=== PATIENT | female | born 1975 | race American Indian/Alaskan Native ===

== ENCOUNTER 2019-03-29 07:32 | Emergency (ER) | payer SELFPAY ==
[2019-03-29] MEDS ORDERED: NACL 0.9% 500 ML 500 ML IV ONE (07:42)
[2019-03-29 08:06] LABS: Basophils # (Auto) 0.1 K/mm3 (0.0-0.1); Basophils % (Auto) 0.6 % (0.0-1.8); Eosinophils % (Auto) 0.2 % (0.0-4.3); Hemoglobin 12.2 gm/dl (10.1-14.3); Lymphocytes % (Auto) 6.4 % (13.4-35.0); Mean Corpuscular HGB Conc 34 % (30-34); Mean Corpuscular Volume 96 fl (79-97); Monocytes # (Auto) 1.3 K/mm3 (0.0-0.8); Monocytes % (Auto) 8.6 % (0.0-7.3); Platelet Count 244 K/mm3 (140-440); Red Blood Count 3.76 M/mm3 (3.65-5.03); Red Cell Distribution Width 15.2 % (13.2-15.2)
[2019-03-29] MEDS ORDERED: TYLENOL PO ONE (08:06)
[2019-03-29] MEDS ORDERED: TYLENOL ONE (08:09)
--- NOTE | 2019-03-29 08:12 | XRay Report ---
CHEST 1 VIEW 0752 INDICATION / CLINICAL INFORMATION: possible Sepsis. COMPARISON: None available. FINDINGS: SUPPORT DEVICES: None HEART / MEDIASTINUM: No significant abnormality. LUNGS / PLEURA: No significant pulmonary or pleural abnormality. No pneumothorax. ADDITIONAL FINDINGS: No significant additional findings. IMPRESSION: No significant acute abnormality Signer Name: Raad Johnson MD Signed: 03/29/2019 8:07 AM Workstation Name: [id number]
[2019-03-29 08:23] LABS: INR 1.18 (0.87-1.13)
[2019-03-29] MEDS ORDERED: TORADOL IV ONE (08:25)
[2019-03-29] MEDS ORDERED: ZOFRAN IV ONE ×2 (08:25→15:18)
[2019-03-29] MEDS ORDERED: MORPHINE IV ONE ×2 (08:25→15:18)
[2019-03-29] MEDS ORDERED: NACL 0.9% 1000 ML 1,000 ML IV ONE ×2 (08:25→10:58)
[2019-03-29 08:29] LABS: Alanine Aminotransferase 19 units/L (7-56); Albumin 3.8 g/dL (3.9-5); BUN/Creatinine Ratio 8; Blood Urea Nitrogen 4 mg/dL (7-17); Calcium 9.5 mg/dL (8.4-10.2); Hemolysis Index 11
[2019-03-29 08:41] LABS: Bacteria,Urine 1+ /HPF (Negative); Bilirubin,Urine NEG (Negative); Blood,Urine MOD (Negative); Color,Urine Yellow (Yellow); Mucus,Urine 2+ /HPF
[2019-03-29] MEDS ORDERED: LEVAQUIN 750MG/150ML 750 MG/150 ML BAG IV ONE (08:50)
[2019-03-29] MEDS ORDERED: K-DUR PO ONE (08:50)
[2019-03-29 08:54] LABS: HCG Qualitative,Urine Negative (Negative)
--- NOTE | 2019-03-29 09:43 | Emergency Department Report ---
ED Fever HPI - General Chief Complaint: Weakness Stated Complaint: BODY ACHE/CHILLS Time Seen by Provider: 03/29/19 08:15 Source: patient Exam Limitations: no limitations - History of Present Illness Initial Comments: 43-year-old female the past medical history of asthma an endometriosis presents to the hospital complains of fever 2 days. Patient had fever, chills, and sweats. She complains of a dry cough and some pain to his chest, abdomen, wrist, and back with coughing and movement that is moderate to severe in intensity. Patient also having intermittent nausea, vomiting, and diarrhea. She traveled here from [facility] 1.5 week ago. She denies dysuria or known sick contacts. Today she had significant bilateral lower back pain with generalized weakness making it difficult for her to ambulate. ED Review of Systems ROS: Stated complaint: BODY ACHE/CHILLS Other details as noted in HPI Comment: All other systems reviewed and negative ED Past Medical Hx - Past Medical History Previous Medical History?: Yes Hx Asthma: Yes Additional medical history: Endometriosis - Surgical History Past Surgical History?: Yes Additional Surgical History: back surgery. Laparoscopic surgery due to endometriosis - Social History Smoking Status: Current Every Day Smoker Substance Use Type: Alcohol - Medications Home Medications: Home Medications Medication Instructions Recorded Confirmed Last Taken Type Albuterol Sulfate [Proair 90 mcg IH Q4HR PRN #1 aer.pow.ba 03/29/19 Unknown Rx Respiclick] Ibuprofen [Motrin] 800 mg PO Q8HR PRN #30 tablet 03/29/19 Unknown Rx Promethazine [Phenergan] 25 mg PO Q8HR PRN #20 tab 03/29/19 Unknown Rx levoFLOXacin [Levaquin] 750 mg PO QDAY #7 tablet 03/29/19 Unknown Rx traMADol [Ultram 50 MG tab] 50 mg PO Q6HR PRN #20 tablet 03/29/19 Unknown Rx ED Physical Exam - General Limitations: No Limitations - Other Other exam information: General: No limitations, patient is alert in no acute distress Head exam: Atraumatic, normocephalic Eyes exam: Normal appearance, pupils equal reactive to light, extraocular movements intact ENT: Moist mucous membrane, normal oropharynx without exudates Neck exam: Normal inspection, full range of motion, no meningismus nontender Respiratory exam: Clear to auscultation bilateral, no wheezes, rales, crackles Cardiovascular: Normal rate and rhythm, normal heart sounds Abdomen: Soft, nondistended, generalized abdominal tenderness greatest in the lower abdomen, with normal bowel sounds, no rebound, or guarding Extremity: Full range of motion normal inspection no deformity Back: Normal Inspection, full range of motion, no midline tenderness, bilateral paraspinal muscle/flank tenderness Neurologic: Alert, oriented x3, cranial nerves intact, no motor or sensory deficit Psychiatric: normal affect, normal mood Skin: Warm, dry, intact ED Course Vital Signs 03/29/19 03/29/19 03/29/19 07:35 08:04 08:16 Temperature 103.2 F H Pulse Rate 114 H 113 H 110 H Respiratory 16 28 H 27 H Rate Blood Pressure 171/78 177/97 O2 Sat by Pulse 100 100 Oximetry 03/29/19 03/29/19 03/29/19 08:30 08:46 09:00 Temperature Pulse Rate 111 H 105 H 100 H Respiratory 23 19 26 H Rate Blood Pressure 177/97 155/91 155/91 O2 Sat by Pulse 100 100 99 Oximetry 03/29/19 03/29/19 03/29/19 09:16 09:30 09:46 Temperature Pulse Rate 97 H 96 H Respiratory 20 26 H Rate Blood Pressure 150/87 150/87 145/78 O2 Sat by Pulse 99 100 100 Oximetry 03/29/19 03/29/19 03/29/19 09:50 10:05 10:30 Temperature Pulse Rate 100 H 96 H Respiratory 20 21 Rate Blood Pressure 145/78 122/71 O2 Sat by Pulse 100 100 Oximetry 03/29/19 03/29/19 03/29/19 10:59 11:00 11:30 Temperature 98.1 F Pulse Rate 94 H 87 Respiratory 20 16 Rate Blood Pressure 134/87 134/87 O2 Sat by Pulse 100 100 Oximetry 03/29/19 03/29/19 12:00 12:30 Temperature Pulse Rate 83 84 Respiratory 21 19 Rate Blood Pressure 127/61 134/87 O2 Sat by Pulse 100 100 Oximetry - Consultations Consultation #1: 03/29/19 15:15 Case D/w Dr Kostas Juarez. F/u in office 03/31 advised ED Medical Decision Making - Lab Data Result diagrams: 03/29/19 07:44 03/29/19 07:44 Lab Results 03/29/19 03/29/19 03/29/19 Range/Units 07:44 07:44 07:44 WBC 15.0 H (4.5-11.0) K/mm3 RBC 3.76 (3.65-5.03) M/mm3 Hgb 12.2 (10.1-14.3) gm/dl Hct 36.0 (30.3-42.9) % MCV 96 (79-97) fl MCH 33 H (28-32) pg MCHC 34 (30-34) % RDW 15.2 (13.2-15.2) % Plt Count 244 (140-440) K/mm3 Lymph % (Auto) 6.4 L (13.4-35.0) % Howell % (Auto) 8.6 H (0.0-7.3) % Eos % (Auto) 0.2 (0.0-4.3) % Baso % (Auto) 0.6 (0.0-1.8) % Lymph # 1.0 L (1.2-5.4) K/mm3 Howell # 1.3 H (0.0-0.8) K/mm3 Eos # 0.0 (0.0-0.4) K/mm3 Baso # 0.1 (0.0-0.1) K/mm3 Seg Neutrophils % 84.2 H (40.0-70.0) % Seg Neutrophils # 12.6 H (1.8-7.7) K/mm3 PT 14.7 (12.2-14.9) Sec. INR 1.18 H (0.87-1.13) VBG pH (7.320-7.420) Sodium 137 (137-145) mmol/L Potassium 3.5 L (3.6-5.0) mmol/L Chloride 97.6 L (98-107) mmol/L Carbon Dioxide 25 (22-30) mmol/L Anion Gap 18 mmol/L BUN 4 L (7-17) mg/dL Creatinine 0.5 L (0.7-1.2) mg/dL Estimated GFR > 60 ml/min BUN/Creatinine Ratio 8 % Glucose 127 H (65-100) mg/dL Lactic Acid (0.7-2.0) mmol/L Calcium 9.5 (8.4-10.2) mg/dL Total Bilirubin 0.50 (0.1-1.2) mg/dL AST 20 (5-40) units/L ALT 19 (7-56) units/L Alkaline Phosphatase 96 (35-129) units/L Total Protein 7.4 (6.3-8.2) g/dL Albumin 3.8 L (3.9-5) g/dL Albumin/Globulin Ratio 1.1 % Urine Color (Yellow) Urine Turbidity (Clear) Urine pH (5.0-7.0) Ur Specific [place] (1.003-1.030) Urine Protein (Negative) mg/dL Urine Glucose (UA) (Negative) mg/dL Urine Ketones (Negative) mg/dL Urine Blood (Negative) Urine Nitrite (Negative) Urine Bilirubin (Negative) Urine Urobilinogen (<2.0) mg/dL Ur Leukocyte Esterase (Negative) Urine WBC (Auto) (0.0-6.0) /HPF Urine RBC (Auto) (0.0-6.0) /HPF U Epithel Cells (Auto) (0-13.0) /HPF Urine Bacteria (Auto) (Negative) /HPF Urine Mucus /HPF Urine HCG, Qual (Negative) 03/29/19 03/29/19 03/29/19 Range/Units 07:44 08:05 08:20 WBC (4.5-11.0) K/mm3 RBC (3.65-5.03) M/mm3 Hgb (10.1-14.3) gm/dl Hct (30.3-42.9) % MCV (79-97) fl MCH (28-32) pg MCHC (30-34) % RDW (13.2-15.2) % Plt Count (140-440) K/mm3 Lymph % (Auto) (13.4-35.0) % Howell % (Auto) (0.0-7.3) % Eos % (Auto) (0.0-4.3) % Baso % (Auto) (0.0-1.8) % Lymph # (1.2-5.4) K/mm3 Howell # (0.0-0.8) K/mm3 Eos # (0.0-0.4) K/mm3 Baso # (0.0-0.1) K/mm3 Seg Neutrophils % (40.0-70.0) % Seg Neutrophils # (1.8-7.7) K/mm3 PT (12.2-14.9) Sec. INR (0.87-1.13) VBG pH 7.407 (7.320-7.420) Sodium (137-145) mmol/L Potassium (3.6-5.0) mmol/L Chloride (98-107) mmol/L Carbon Dioxide (22-30) mmol/L Anion Gap mmol/L BUN (7-17) mg/dL Creatinine (0.7-1.2) mg/dL Estimated GFR ml/min BUN/Creatinine Ratio % Glucose (65-100) mg/dL Lactic Acid 1.20 (0.7-2.0) mmol/L Calcium (8.4-10.2) mg/dL Total Bilirubin (0.1-1.2) mg/dL AST (5-40) units/L ALT (7-56) units/L Alkaline Phosphatase (35-129) units/L Total Protein (6.3-8.2) g/dL Albumin (3.9-5) g/dL Albumin/Globulin Ratio % Urine Color Yellow (Yellow) Urine Turbidity Slightly-cloudy (Clear) Urine pH 6.0 (5.0-7.0) Ur Specific [place] 1.017 (1.003-1.030) Urine Protein 100 mg/dl (Negative) mg/dL Urine Glucose (UA) Neg (Negative) mg/dL Urine Ketones Tr (Negative) mg/dL Urine Blood Mod (Negative) Urine Nitrite Neg (Negative) Urine Bilirubin Neg (Negative) Urine Urobilinogen 4.0 (<2.0) mg/dL Ur Leukocyte Esterase Mod (Negative) Urine WBC (Auto) 21.0 H (0.0-6.0) /HPF Urine RBC (Auto) 53.0 (0.0-6.0) /HPF U Epithel Cells (Auto) 9.0 (0-13.0) /HPF Urine Bacteria (Auto) 1+ (Negative) /HPF Urine Mucus 2+ /HPF Urine HCG, Qual Negative (Negative) 03/29/19 Range/Units 10:57 WBC (4.5-11.0) K/mm3 RBC (3.65-5.03) M/mm3 Hgb (10.1-14.3) gm/dl Hct (30.3-42.9) % MCV (79-97) fl MCH (28-32) pg MCHC (30-34) % RDW (13.2-15.2) % Plt Count (140-440) K/mm3 Lymph % (Auto) (13.4-35.0) % Howell % (Auto) (0.0-7.3) % Eos % (Auto) (0.0-4.3) % Baso % (Auto) (0.0-1.8) % Lymph # (1.2-5.4) K/mm3 Howell # (0.0-0.8) K/mm3 Eos # (0.0-0.4) K/mm3 Baso # (0.0-0.1) K/mm3 Seg Neutrophils % (40.0-70.0) % Seg Neutrophils # (1.8-7.7) K/mm3 PT (12.2-14.9) Sec. INR (0.87-1.13) VBG pH (7.320-7.420) Sodium (137-145) mmol/L Potassium (3.6-5.0) mmol/L Chloride (98-107) mmol/L Carbon Dioxide (22-30) mmol/L Anion Gap mmol/L BUN (7-17) mg/dL Creatinine (0.7-1.2) mg/dL Estimated GFR ml/min BUN/Creatinine Ratio % Glucose (65-100) mg/dL Lactic Acid 0.90 (0.7-2.0) mmol/L Calcium (8.4-10.2) mg/dL Total Bilirubin (0.1-1.2) mg/dL AST (5-40) units/L ALT (7-56) units/L Alkaline Phosphatase (35-129) units/L Total Protein (6.3-8.2) g/dL Albumin (3.9-5) g/dL Albumin/Globulin Ratio % Urine Color (Yellow) Urine Turbidity (Clear) Urine pH (5.0-7.0) Ur Specific [place] (1.003-1.030) Urine Protein (Negative) mg/dL Urine Glucose (UA) (Negative) mg/dL Urine Ketones (Negative) mg/dL Urine Blood (Negative) Urine Nitrite (Negative) Urine Bilirubin (Negative) Urine Urobilinogen (<2.0) mg/dL Ur Leukocyte Esterase (Negative) Urine WBC (Auto) (0.0-6.0) /HPF Urine RBC (Auto) (0.0-6.0) /HPF U Epithel Cells (Auto) (0-13.0) /HPF Urine Bacteria (Auto) (Negative) /HPF Urine Mucus /HPF Urine HCG, Qual (Negative) - EKG Data -: EKG Interpreted by Tx EKG shows normal: sinus rhythm, axis (qrs 84), QRS complexes (qrsd 83), ST-T waves (no stemi) Rate: tachycardia (108) - EKG Data When compared to previous EKG there are: previous EKG unavailable - Radiology Data Radiology results: report reviewed CHEST 1 VIEW 0752 INDICATION / CLINICAL INFORMATION: possible Sepsis. COMPARISON: None available. FINDINGS: SUPPORT DEVICES: None HEART / MEDIASTINUM: No significant abnormality. LUNGS / PLEURA: No significant pulmonary or pleural abnormality. No pneumothorax. ADDITIONAL FINDINGS: No significant additional findings. IMPRESSION: No significant acute abnormality CT ABDOMEN AND PELVIS WITH CONTRAST HISTORY: Generalized abdominal pain and fever. COMPARISON: None TECHNIQUE: Routine abdominal and pelvic CT exam performed with IV contrast. The patient received 100 cc of IV Omnipaque 300.. All CT scans at this location are performed using CT dose reduction for ALARA by means of automated exposure control. FINDINGS: CT ABDOMEN: Lung Bases: No significant abnormality. Liver: No significant abnormality. Biliary: No significant abnormality. Spleen: No significant abnormality. Unenlarged. Pancreas: No significant abnormality. Adrenals: No significant abnormality. Kidneys: The left kidney is enlarged with striated nephrogram appearance suggestive of pyelonephritis. There is no hydronephrosis. There are no urinary stones identified. Lymphatics: No lymphadenopathy. Vasculature: No significant abnormality. Bowel/Peritoneum: No significant abnormality. No free air. No free fluid. Normal appendix. CT PELVIC: : There is a complex 6.2 x 3.8 cm left adnexal mass. This appears to be slightly tubular and could represent a hydrosalpinx. There also is apparent mild distention of the right fallopian tube. Lymphatics: No lymphadenopathy. Osseous Structures: No aggressive appearing osseous lesions. Additional Findings: None IMPRESSION: 1. CT findings highly suggestive of left-sided pyelonephritis. No urinary stones or hydronephrosis. 2. Complex cystic left adnexal lesion which appears somewhat tubular and is favored to represent a hydrosalpinx. There is also apparent mild dilation of the right fallopian tube. Further evaluation of the pelvis with ultrasound is recommended to confirm this suspicion. ULTRASOUND PELVIS INDICATION: left ovarian cyst. Left-sided pyelonephritis and probable left TOA/hydrosalpinx on recent CT earlier today TECHNIQUE: Transvaginal. Duplex Color Doppler used: Yes. COMPARISON: CT pelvis 03/29/2019 FINDINGS: Uterus: Present. Size: 10.3 x 4.1 x 6.5 cm. Endometrial complex: Normal measuring 8 cm. Mass lesions: 2 small calcified uterine leiomyomas each measuring less than a centimeter Additional findings: None. Right Ovary --. Measures 3.0 x 2.3 x 3.1 cm Blood flow: Normal. Cyst or mass: Simple follicular cyst measuring 2.0 x 1.6 x 1.7 cm Left Ovary-- probable left hydrosalpinx with tubular structure measuring 8.5 x 3.5 x 3.5 cm Blood flow: Normal. Cyst or mass: None. Urinary Bladder: Normal. Free Fluid: None. Additional Findings: None. IMPRESSION: 1. Tubular structure in left adnexa likely secondary to hydrosalpinx. 2. Leiomyomatous uterus and simple 2 cm right ovarian follicular cyst 3. No ovarian torsion. - Medical Decision Making Patient in the ED for several hours. She has been feeling better with ED treatment tolerating food while waiting results. Just prior to discharge she had some recurrent back pain and a pain medicine ordered. She was resuscitated with IV fluids. She received Levaquin, morphine, Zofran, Toradol, and Tylenol. She also received by mouth potassium for mild hypokalemia. Patient denies vaginal discharge. Informed of ultrasound and CT findings and need for follow- up with [facility] and return to ER if symptoms don't improve with treatment. She download a good Rx To her phone and I showed her how to use the jonh to to find the cheapest cost for her prescribed meds. Urine cultures and due to these pending. No signs of severe sepsis or septic shock at this time - Differential Diagnosis UTI, sepsis, diverticulitis, appendicitis,, bowel syndrome, gastroenteritis Critical Care Time: No Critical care attestation.: If time is entered above; I have spent that time in minutes in the direct care of this critically ill patient, excluding procedure time. ED Disposition Clinical Impression: Pyelonephritis, Hydrosalpinx, Hx of endometriosis, Uterine fibroid, Asthma Ovarian cyst Qualifiers: Laterality: left Qualified Code(s): N83.202 - Unspecified ovarian cyst, left side Disposition: TO HOME OR SELFCARE Is pt being admited?: No Does the pt Need Aspirin: No Condition: Stable Instructions: Acute Pyelonephritis (ED), Ovarian Cyst (ED), Uterine Fibroids (ED), Asthma (ED) Additional Instructions: Take the medication as prescribed. Follow up with your doctor or the clinic/doctor provided. Return if symptoms worsen as indicated by your discharge instructions Follow-up with the [facility] doctor, Dr. Janelle Juarez this Wednesday. Prescriptions: levoFLOXacin [Levaquin] 750 mg PO QDAY #7 tablet Ibuprofen [Motrin] 800 mg PO Q8HR PRN #30 tablet PRN Reason: Pain, Moderate (4-6) Promethazine [Phenergan] 25 mg PO Q8HR PRN #20 tab PRN Reason: Nausea Albuterol Sulfate [Proair Respiclick] 90 mcg IH Q4HR PRN #1 aer.pow.ba PRN Reason: Wheezing traMADol [Ultram 50 MG tab] 50 mg PO Q6HR PRN #20 tablet PRN Reason: Pain , Severe (7-10) Referrals: YESSI AJYUKON MD [id number] [Primary Care Provider] - 3-5 Days JANELLE JUAREZ MD [Staff Physician] - 03/31/19 Time of Disposition: 15:35
--- NOTE | 2019-03-29 10:31 | Cat Scan Report ---
CT ABDOMEN AND PELVIS WITH CONTRAST HISTORY: Generalized abdominal pain and fever. COMPARISON: None TECHNIQUE: Routine abdominal and pelvic CT exam performed with IV contrast. The patient received 100 cc of IV Omnipaque 300.. All CT scans at this location are performed using CT dose reduction for ALAR A by means of automated exposure control. FINDINGS: CT ABDOMEN: Lung Bases: No significant abnormality. Liver: No significant abnormality. Biliary: No significant abnormality. Spleen: No significant abnormality. Unenlarged. Pancreas: No significant abnormality. Adrenals: No significant abnormality. Kidneys: The left kidney is enlarged with striated nephrogram appearance suggestive of pyelonephritis . There is no hydronephrosis. There are no urinary stones identified. Lymphatics: No lymphadenopathy. Vasculature: No significant abnormality. Bowel/Peritoneum: No significant abnormality. No free air. No free fluid. Normal appendix. CT PELVIC: : There is a complex 6.2 x 3.8 cm left adnexal mass. This appears to be slightly tubular and could represent a hydrosalpinx. There also is apparent mild distention of the right fallopian tube. Lymphatics: No lymphadenopathy. Osseous Structures: No aggressive appearing osseous lesions. Additional Findings: None IMPRESSION: 1. CT findings highly suggestive of left-sided pyelonephritis. No urinary stones or hydronephrosis. 2. Complex cystic left adnexal lesion which appears somewhat tubular and is favored to represent a hy drosalpinx. There is also apparent mild dilation of the right fallopian tube. Further evaluation of t he pelvis with ultrasound is recommended to confirm this suspicion. Signer Name: Gustavo Stacy MD Signed: 03/29/2019 10:27 AM Workstation Name: [id number]
--- NOTE | 2019-03-29 14:41 | Ultrasound Report ---
ULTRASOUND PELVIS INDICATION: left ovarian cyst. Left-sided pyelonephritis and probable left TOA/hydrosalpinx on recent CT earlier today TECHNIQUE: Transvaginal. Duplex Color Doppler used: Yes. COMPARISON: CT pelvis 03/29/2019 FINDINGS: Uterus: Present. Size: 10.3 x 4.1 x 6.5 cm. Endometrial complex: Normal measuring 8 cm. Mass lesions: 2 small calcified uterine leiomyomas each measuring less than a centimeter Additional findings: None. Right Ovary --. Measures 3.0 x 2.3 x 3.1 cm Blood flow: Normal. Cyst or mass: Simple follicular cyst measuring 2.0 x 1.6 x 1.7 cm Left Ovary-- probable left hydrosalpinx with tubular structure measuring 8.5 x 3.5 x 3.5 cm Blood flow: Normal. Cyst or mass: None. Urinary Bladder: Normal. Free Fluid: None. Additional Findings: None. IMPRESSION: 1. Tubular structure in left adnexa likely secondary to hydrosalpinx. 2. Leiomyomatous uterus and simple 2 cm right ovarian follicular cyst 3. No ovarian torsion. Signer Name: Ken Valiente MD Signed: 03/29/2019 2:36 PM Workstation Name: [id number]
[2019-03-29 15:51] VITALS: BP 120/82
== END 2019-03-29 15:57 | disposition home or self-care (01) ==
LOC: ED 07:32
DX: J45.909 Unspecified asthma, uncomplicated (principal); N12 Tubulo-interstitial nephritis, not specified as acute or chronic; N83.202 Unspecified ovarian cyst, left side; N70.11 Chronic salpingitis; F17.200 Nicotine dependence, unspecified, uncomplicated; Z79.899 Other long term (current) drug therapy; Z88.0 Allergy status to penicillin
CPT/HCPCS: 36415; 71045; 74177; 76830; 80053; 81001; 81025; 82140; 82805; 85025; 85610; 87040; 87076; 87086; 87186; 93005; 93010; 93975; 96361; 96365; 96375; 96376; 99284; J1885; J1956; J2270; J2405; J7030; J7040; Q9967